=== PATIENT | male | born 1990 | race Caucasian/White ===

== ENCOUNTER 2016-12-25 03:40 | Inpatient (IN) | payer OTHER ==
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
--- NOTE | ~2016-12-25 | PN ---
Unit #: [id number] #: [id number] Patient: NATE MARIA [id number] [facility] [address] [place] [address] [id number] MR#: [id number] NAME: NATE MARIA ROOM: P207 Age: 26 Sex: M Admission Date: 12/25/2016 : 1990 Attending Physician: Ezekiel Griffith M.D. Admitting Physician: Ezekiel Griffith M.D. Primary Care Physician: Josselin Morales Jr. PROGRESS NOTES DATE 12/26/2016 DISCUSSION The patient is seen to be in somewhat brighter spirits today but continues to complain of severe symptoms of opioid withdrawal. He continues to express interest in residential chemical dependence treatment following discharge. Dictated by... Ezekiel Griffith M.D. CB/suzanna TD: 12/26/2016 14:07 JOB #: [id number] [facility] PROGRESS NOTES Page 1 of 1 X Ezekiel Griffith MD X PROGRESS NOTE
--- NOTE | ~2016-12-25 | PA ---
Unit #: [id number] #: [id number] Patient: NATE MARIA [id number] [place] [address] [id number] MR#: [id number] NAME: NTAE MARIA. ROOM: P207 Age: 26 Sex: M Admission Date: 12/25/2016 : 1990 Date of Assessment: 12/25/2016 Attending Physician: Ezekiel Griffith M.D. Admitting Physician: Ezekiel Griffith M.D. Primary Care Physician: Piter Giron Jr., A.P.R.N. PSYCHIATRIC ASSESSMENT IDENTIFYING INFORMATION The patient is a 26-year-old, white male admitted following recent relapse of heroin and methamphetamine abuse. CHIEF COMPLAINT My sister . INFORMANT Patient. Patient's reliability is good. HISTORY OF PRESENT ILLNESS The patient is a 26-year-old, white male last admitted to this facility in August of 2016. The patient left this facility for [facility]. He completed programming there and maintained sobriety until December 19 when he learned that his sister had from a heroin overdose. The patient reports that he has been shooting heroin and methamphetamine since that time. Because of his use, he will not be able to return to the domicile he had previously shared with his fiancee. He is currently denying suicidal or homicidal ideation and denies any psychotic symptoms. For a more complete history of present illness, please refer to previously dictated. PAST PSYCHIATRIC HISTORY Reviewed, no changes. PAST MEDICAL HISTORY Reviewed, no changes. MEDICATIONS BuSpar and Remeron. The patient has been noncompliant with these medications. ALLERGIES None. FAMILY HISTORY Reviewed, no changes. SOCIAL HISTORY Reviewed, no changes. MENTAL STATUS EXAMINATION At this time reveals the patient to be a well developed, well nourished, Unit #: [id number] #: [id number] Patient: NATE MARIA white male appearing his stated age. He is in no apparent physical distress at the time of the examination. He is awake, alert, and oriented in all spheres. His mood was dysphoric. His affect blunted. Speech is generally relevant and coherent. There are no gross deficits in memory or cognition and intelligence is judged to be in the average range based on fund of knowledge. The patient is cooperative throughout the interview. He is currently denying suicidal or homicidal ideation (1) . Judgement and insight appear to be intact. ASSETS AND LIABILITIES ASSETS: Motivation for change. LIABILITIES: Lack of resources, homelessness. DIAGNOSTIC IMPRESSION 1. Methamphetamine use disorder. 2. Dysthymic disorder. 3. Opioid use disorder. TREATMENT PLAN The patient remains hospitalized for safety and stabilization. Routine detoxication protocol for opioids has been initiated. We will call the patient's pharmacy to verify doses of BuSpar and Remeron. The patient is requesting referral for residential chemical dependence treatment and I will ask the manager social work to seem him regarding this. ESTIMATED LENGTH OF STAY IN THE HOSPITAL Five to seven days. Dictated by... Ezekiel Griffith M.D. YEMI/antoine TD: 12/25/2016 13:29 JOB #: [id number] PSYCHIATRIC ASSESSMENT Page 1 of 1 X Ezekiel Griffith MD X PSYCHIATRIC ASSESSMENT
--- NOTE | ~2016-12-25 | DS ---
Unit #: [id number] #: [id number] Patient: NATE MARAI [id number] [facility] [address] [place] [address] [id number] MR#: [id number] NAME: NATE MARIA. ROOM: P207 Age: 26 Sex: M Admission Date: 12/25/2016 : 1990 Discharge Date: 12/27/2016 Attending Physician: Ezekiel Griffith M.D. Primary Care Physician: Piter Giron Jr., A.P.R.N. DISCHARGE SUMMARY REASON FOR ADMISSION The patient is a 26-year-old white male, admitted to the [address] [place] [address] unit with suicidal ideation and a recent relapse of heroin and methamphetamine use. HOSPITAL COURSE The patient was admitted to the [address] [place] [address] unit and placed on suicide precautions. The patient had reported that he had been on BuSpar and Remeron, but there was no record of the patient taking these medications and hence they were not restarted. The patient's detox was a brief and uneventful one. By 12/27/2016, the patient requested discharge stating that he would participate in the intensive outpatient program provided by this facility and discharge was ordered. FINAL DIAGNOSES Opioid use disorder, methamphetamine use disorder, and dysthymic disorder. DISPOSITION ON DISCHARGE No psychotropic or other medications were ordered at the time of discharge. FOLLOWUP Followup will take place through the auspices of [facility] and chemical dependency treatment resources and the chemical dependency intensive outpatient program provided by this facility. PROGNOSIS The patient's prognosis is considered fair. DISCHARGE INSTRUCTIONS The patient is instructed to contact this facility regarding the results of pending HIV and hepatitis testing. Dictated by... Ezekiel Griffith M.D. CB/dianna TD: 12/27/2016 14:44 JOB #: [id number] Unit #: [id number] #: [id number] Patient: NATE MARIA DISCHARGE SUMMARY Page 1 of 1 X Ezekiel Griffith MD X DISCHARGE SUMMARY
[~2016-12-25 03:40] MED LIST: ALBUTEROL17 GM INH; COLACE PO; FLONASE 0.05% N16 G1; KEFLEX500 M1 PO; MEDROL DOSEPAK4 MG DOB; NO MEDICATIONS; PEN-VEE K PO; PREDNISONE PO; PROCTOFOAM-HC 110 GM TOP; VICODIN 5/1 TAB 5/50 PO; VOLTAREN75 MG PO; ZITHROMAX PO
[2016-12-25 09:51] LABS: BASOPHIL# 0.1 X10e3 (0-0.3); BASOPHIL% 0.7 % (0-2.5); EOSINOPHIL# 0.3 X10e3 (0-0.7); EOSINOPHIL% 3.4 % (0.0-7.0); HEMATOCRIT 46.2 % (38.0-50.0); HEMOGLOBIN 15.8 gm/dL (13.0-16.0); LYMPHOCYTE# 3.5 X10e3 (1.0-3.5); LYMPHOCYTE% 38.3 % (17.0-45.0); MEAN CELL VOLUME 87.7 FL (83-96); MEAN CORPUSCULAR HGB CONC 34.3 g/dL (30-36); MEAN PLATELET VOLUME 9.4 FL (6.5-11.5); MONOCYTE# 0.7 X10e3 (0-1.0); MONOCYTE% 7.5 % (3.0-12.0); NEUTROPHIL# 4.6 X10e3 (1.5-7.1); NEUTROPHIL% 50.1 % (40-75); PLATELET COUNT 171 X10e3 (140-420); RED BLOOD COUNT 5.27 X10e (3.90-5.60); RED CELL DISTRIBUTION WIDTH 13.1 % (11.0-15.5); WHITE BLOOD COUNT 9.2 X10e3 (4.0-10.5)
[2016-12-25 09:55] LABS: URINE APPEARANCE TURBID; URINE BLOOD NEG (NEG); URINE COLOR DK YELLOW; URINE GLUCOSE NEG (NEG); URINE KETONE TRACE (NEG); URINE LEUKOCYTE ESTERASE TRACE (NEG); URINE NITRATE NEG (NEG); URINE PROTEIN TRACE (NEG); URINE SPECIFIC GRAVITY 1.037 (1.003-1.035)
[2016-12-25 09:58] LABS: URBCS1 AUWI 0-2 /[HPF] (0-2); URINE BACTERIA AUWI NEG (NEGATIVE); URINE SQUAMOUS EPITHELIAL CELL NONE SEEN /[HPF]; UWBCS1 AUWI 0-2 (0-5)
[2016-12-25 10:01] LABS: URINE BILIRUBIN NEG (NEG)
[2016-12-25 10:05] LABS: ALBUMIN SERUM 3.7 g/dL (3.5-5.0); BUN/CREATININE RATIO 21.42; CALCIUM SERUM 8.9 mg/dL (8.4-10.2); CREATININE SERUM 0.7 mg/dL (0.6-1.4); GLOM FILT RATE Estimated 129.4 mL/min (>60); POTASSIUM 3.4 mmol/L (3.5-5.1); PROTEIN TOTAL SERUM 6.6 g/dL (6.0-8.3)
[2016-12-25 10:09] LABS: DIFF IND NO
[2016-12-25 11:23] LABS: AMPHETAMINE POS (NEG); BARBITURATES NEG (NEG); BENZODIAZEPINES NEG (NEG); COCAINE NEG (NEG); MARIJUANA NEG (NEG); OPIATES POS (NEG); TRICYCLIC ANTIDEPRESSANTS NEG (NEG); U METHADONE NEG (NEG)
== END 2016-12-27 14:58 | DRG 897 ==
LOC: P2S 03:40
PROVIDERS: Specialist
PROC: HZ2ZZZZ Detoxification Services for Substance Abuse Treatment (ICD-10-PCS; principal; 2016-12-25)
DX: F15.20 Other stimulant dependence, uncomplicated (principal); F11.20 Opioid dependence, uncomplicated; F34.1 Dysthymic disorder; B19.20 Unspecified viral hepatitis C without hepatic coma; F17.210 Nicotine dependence, cigarettes, uncomplicated
CPT/HCPCS: 80053; 80307; 81003; 85025; 86592

== ENCOUNTER 2017-02-12 22:01 | Emergency (ER) | payer OTHER ==
--- NOTE | ~2017-02-12 | CR126 ---
[facility] A Service of [facility] & [facility] RADIOLOGY TEXT RESULTS PATIENT: NATE MARIA LOCATION: [facility] : [birth year] UNIT #: [id number] AGE: [address]: Michelle Duncan MD SEX: M ORDER DR: [id number] [facility] [address] [place], [place] [address] [id number] MR#: [id number] Acc #: [id number] NAME: NATE MARIA : 1990 SEX: M STUDY DATE/TIME: 02/12/2017 22:30 UNIT: [facility] ROOM: STUDY DESCRIPTION: CR Foot Complete Min 3 View Lt Attending Physician: Michelle Duncan M.D. Ordering Physician: Michelle Duncan M.D. Primary Care Physician: No Primary Care Physician MEDICAL IMAGING REPORT This report is preliminary unless electronic signature is present EXAM Left foot 02/12/2017 HISTORY A 26-year-old male in the ED complaining of third toe laceration after a fall today. Pain. TECHNIQUE Three-view left foot series FINDINGS No fracture, dislocation or other osseous abnormality is demonstrated. No radiopaque soft tissue foreign body. IMPRESSION Negative left foot series. Dictated by... Devonte Resendez M.D. THIS IS AN ELECTRONICALLY VERIFIED REPORT Devonte Resendez M.D. at 02/13/2017 6:05 AM Jonathan TD: 02/12/2017 23:38 JOB #: [id number] MEDICAL IMAGING REPORT Page 1 of 1 COPY
== END 2017-02-12 23:47 | disposition home or self-care (01) ==
LOC: CED 22:01 → CFTX 22:45 → CED 23:47
DX: S90.122A Contusion of left lesser toe(s) without damage to nail, initial encounter (principal); F17.200 Nicotine dependence, unspecified, uncomplicated; Z79.899 Other long term (current) drug therapy; X58.XXXA Exposure to other specified factors, initial encounter; Y92.098 Other place in other non-institutional residence as the place of occurrence of the external cause
CPT/HCPCS: 29405; 73630; 99283

== ENCOUNTER 2017-02-20 00:32 | Emergency (ER) | payer OTHER | END 2017-02-20 04:00 | disposition left against medical advice (07) | LOC: CED 00:32 | DX: Z53.21 Procedure and treatment not carried out due to patient leaving prior to being seen by health care provider (principal) ==